=== PATIENT | male | born 1970 | race Caucasian/White ===

== ENCOUNTER → 2023-07-23 | Outpatient (CLI) | payer BC ==
--- NOTE | 2023-07-23 16:19 | Diagnostic Imaging Report ---
EXAMINATION: Left hip radiograph. EXAM DATE: 07/23/2023, 1:52 p.m. COMPARISON: None available. HISTORY: Pain of left hip joint. TECHNIQUE: Two views. FINDINGS: There is no acute fracture, dislocation, or destructive osseous process. There is degenerative joint space narrowing and small osteophytes within the left hip. The soft tissues are normal. IMPRESSION: 1. Degenerative changes of the left hip without acute osseous abnormality. Dictated by: Dictated on workstation # [id number]
== END ==
LOC: ORTHO 13:13
PROVIDERS: ATTEND Orthopaedic Surgery
DX: M16.12 Unilateral primary osteoarthritis, left hip (principal)
CPT/HCPCS: 73502; G0463; 99203